=== PATIENT | female | born 1995 | race Caucasian/White ===

== ENCOUNTER 2018-07-29 04:10 | Emergency (ER) | payer OTHER ==
[~2018-07-29] VITALS: Ht 152.4 cm; Wt 89.8 kg
--- NOTE | 2018-07-29 05:34 | Diagnostic Imaging Report ---
EXAM: CHEST 2 VIEWS, PA and lateral INDICATION: Left-sided chest pain COMPARISON: None FINDINGS: LINES/TUBES: None LUNGS: No consolidations or edema. PLEURA: No effusions or pneumothorax. HEART AND MEDIASTINUM: Normal size and contour. BONES AND SOFT TISSUES: No acute findings. IMPRESSION: No acute thoracic abnormality. Signed by: Dr. Harriet Sauceda M.D. on 07/29/2018 5:31 AM
== END 2018-07-29 06:49 | disposition home or self-care (01) ==
LOC: ER 04:10
DX: R00.2 Palpitations (principal)
CPT/HCPCS: 71046; 93005; 99282

== ENCOUNTER 2018-08-24 01:58 | Emergency (ER) | payer OTHER ==
[~2018-08-24] VITALS: Ht 152.4 cm; Wt 89.8 kg
--- OUTSIDE RECORDS SUMMARY | 2018-08-24 02:02 | XMS REPORT ---
[facility] Address Unknown Phone Unavailable Care Team Providers Care Power Builder Developer Name Role Phone Chanda HAYDEN Unavailable Unavailable Problems This patient has no known problems. Allergies, Adverse Reactions, Alerts This patient has no known allergies or adverse reactions. Medications This patient has no known medications. Results Test Description Test Time Test Comments Text Results Atomic Results Result Comments CHEST 2 VIEWS 2018-07-29 05:31:00 [place] [id number] Patient Name: KATALINA DEL VALLE MR #: [id number] : 1995 Age/Sex: 22/F Req #: [id number] Adm Physician: Ordered by: LOS HAYDEN MD Report #: [id number] Location: ER Room/Bed: Procedure: [id number] DX/CHEST 2 VIEWS Exam Date: 07/29/18 Exam Time: 0502 REPORT STATUS: Signed EXAM: CHEST 2 VIEWS, PA and lateral INDICATION: Left-sided chest pain COMPARISON: None FINDINGS: LINES/TUBES: None LUNGS: No consolidations or edema. PLEURA: No effusions or pneumothorax. HEART AND MEDIASTINUM: Normal size and contour. BONES AND SOFT TISSUES: No acute findings. IMPRESSION: No acute thoracic abnormality. Signed by: Dr. Gilmar Harris M.D. on 07/29/2018 5:31 AM Dictated By: GILMAR HARRIS MD 0 Transcribed By: HEIDY on 07/29/18530 COPY TO: LOS HAYDEN MD
[2018-08-24 02:20] VITALS: BP 123/88
[2018-08-24 02:52] LABS: BASOPHILS # (AUTO) 0.1 (0.0-0.1); BASOPHILS % 0.4 % (0.0-1.0); EOSINOPHILS # (AUTO) 0.4 (0.0-0.4); EOSINOPHILS % 3.4 % (0.0-6.0); HEMATOCRIT 34.2 % (34.2-44.1); HEMOGLOBIN 12.1 g/dL (12.0-16.0); LYMPHOCYTES # (AUTO) 3.2 (1.0-3.2); LYMPHOCYTES % 26.1 % (18.0-39.1); MEAN CORPUSCULAR HEMOGLOBIN 28.3 pg (28-32); MEAN CORPUSCULAR HGB CONC 35.4 g/dL (31-35); MEAN CORPUSCULAR VOLUME 80.1 fL (81-99); MONOCYTES # (AUTO) 1.2 (0.2-0.8); MONOCYTES % 9.5 % (4.4-11.3); NEUTROPHILS # (AUTO) 7.5 (2.1-6.9); NEUTROPHILS % 60.4 % (38.7-80.0); PLATELET COUNT 377 x10e3/uL (140-360); RED BLOOD COUNT 4.27 x10e6/uL (3.6-5.1); RED CELL DISTRIBUTION WIDTH 13.8 % (11.7-14.4)
[2018-08-24 03:10] LABS: ALANINE AMINOTRANSFERASE 32 IU/L (0-55); ALBUMIN 3.9 g/dL (3.5-5.0); ALBUMIN/GLOBULIN RATIO 1.2 (0.8-2.0); ALKALINE PHOSPHATASE 47 IU/L (40-150); ANION GAP 15.5 mmol/L (8-16); BLOOD UREA NITROGEN 13 mg/dL (7-26); BUN/CREATININE RATIO 16 (6-25); CALCIUM 9.4 mg/dL (8.4-10.2); CARBON DIOXIDE 19 mmol/L (22-29); CHLORIDE 108 mmol/L (98-107); CREATININE, SERUM 0.79 mg/dL (0.57-1.11); EST GLOMERULAR FILTRATION RATE > 60 ML/MIN (60-); GLUCOSE 92 mg/dL (74-118); POTASSIUM 3.5 mmol/L (3.5-5.1); SODIUM 139 mmol/L (136-145)
--- NOTE | 2018-08-24 03:59 | Diagnostic Imaging Report ---
EXAMINATION: Head CT without contrast. HISTORY:Headache and lightheaded. COMPARISON:None. TECHNIQUE: Multidetector axial images were obtained from the foramen magnum to the vertex without contrast. The images were reconstructed using brain and bone algorithms. Thin section brain images were reformatted into coronal and sagittal planes. Dose modulation, iterative reconstruction, and/or weight based adjustment of the mA/kV was utilized to reduce the radiation dose to as low as reasonably achievable. Intravenous contrast: None IMAGE QUALITY: Acceptable. FINDINGS: Skull/scalp: No lytic or blastic. lesions. No surgical changes. Parenchyma: No abnormal density. No acute hemorrhage, mass or acute major vascular territorial infarct. Arteries: No density suggestive of thrombosis. Dural sinuses: No abnormal density suggestive of thrombosis. Ventricles: No hydrocephalus or displacement. Extra-axial spaces: No abnormal density. Brain volume: Normal for age. Craniocervical junction: No mass, Chiari malformation, or basilar invagination. Sella: No mass. Paranasal/mastoid sinuses: Imaged portions unremarkable. IMPRESSION: No intracranial abnormality. Signed by: Dr. Lindsey Rader M.D. on 08/24/2018 3:56 AM
--- NOTE | 2018-08-24 04:08 | Diagnostic Imaging Report ---
History: Difficulty swallowing, feeling of something stuck in the throat. Comparison studies: None Technique: Axial, coronal and sagittal images from the skull base to the thoracic inlet. Coronal and sagittal images reconstructed from the axial data. Dose modulation, iterative reconstruction, and/or weight based adjustment of the mA/kV was utilized to reduce the radiation dose to as low as reasonably achievable. Intravenous contrast: 100 cc of Isovue 370.. Findings: Soft tissues: Minimal soft tissue prominence at the level of the palatine tonsils and left paramedian lingual tonsil may represent pharyngitis in appropriate clinical setting. No discrete peripheral rim-enhancing fluid collection. Airway is patent. No radiopaque foreign body. Masses: None. Lymph nodes: No radiographically significant adenopathy. Vessels: Arteries and veins are patent. Glands (thyroid, parotid and submandibular): Normal in size and symmetric. No masses. Orbits: No abnormalities. Paranasal sinuses: Clear. Temporal bones: No abnormalities. Skull base and facial bones: Intact. Cervical spine: No significant abnormality. IMPRESSION: 1. Minimal palatine and left lingual tonsillar soft tissue prominence may represent pharyngitis in appropriate clinical setting. No discrete abscess. 2. No worrisome lateral cervical lymphadenopathy. Signed by: Dr. Lindsey Rader M.D. on 08/24/2018 4:05 AM
[2018-08-24] MEDS ORDERED: IOPAMIDOL 370 MG/ML 200 ML INFUS..BTL INJ ONE (04:51)
[2018-08-24] MEDS ORDERED: SODIUM CHLORIDE 0.9% 50ML 50 ML ONE (04:51)
[2018-08-24] MEDS ORDERED: AMOXICILLIN250 MG PO (05:33)
== END 2018-08-24 06:00 | disposition home or self-care (01) ==
LOC: ER 01:58
DX: J02.9 Acute pharyngitis, unspecified (principal); B35.8 Other dermatophytoses; R51 Headache
CPT/HCPCS: 36415; 70450; 70491; 80053; 85025; 99283; Q9967

== ENCOUNTER 2018-09-10 23:16 | Emergency (ER) | payer OTHER ==
[~2018-09-10] VITALS: Ht 152.4 cm; Wt 89.8 kg
[~2018-09-10 23:16] MED LIST: AMOXICILLIN250 MG PO
== END 2018-09-11 00:13 | disposition home or self-care (01) ==
LOC: ER 23:16
DX: M54.2 Cervicalgia (principal); S16.1XXA Strain of muscle, fascia and tendon at neck level, initial encounter; S00.83XA Contusion of other part of head, initial encounter; V43.52XA Car driver injured in collision with other type car in traffic accident, initial encounter; Y92.488 Other paved roadways as the place of occurrence of the external cause; F41.9 Anxiety disorder, unspecified
CPT/HCPCS: 99282

== ENCOUNTER 2020-01-22 03:21 | Emergency (ER) | payer OTHER ==
[~2020-01-22] VITALS: Ht 152.4 cm; Wt 80.3 kg
--- NOTE | 2020-01-22 03:44 | Emergency Department Note ---
History of Present Illnes History of Present Illness Chief Complaint: Extremity Trauma/Pain History of Present Illness This is a 24 year old female PRESENTS TO THE ER C/O LT CALF PAIN ONSET YESTERDAY AM; PT STATES SHE DEVELOPS PAIN WHEN AMBULATING OR BEARING WEIGHT; PT STATES SHE FEELS TIGHTNESS IN HER CALF; PT DENIES ANY LONG TRAVELS BUT HAS BEEN LAYING IN BED FOR EXTENDED PERIOD OF TIME OVER THE PAST FEW DAYS D/T DX EAR INFECTION. Historian: Patient Arrival Mode: Car Onset (how long ago): day(s) (1) Location: LEFT CALF Quality: PAIN Radiation: Reports non-radiation Severity: mild Onset quality: sudden Duration (how long): day(s) (1) Timing of current episode: constant Progression: unchanged Chronicity: new Context: Denies recent illness, Denies recent surgery, Denies recent travel, Denies trauma/injury Relieving factors: immobilization Exacerbating factors: movement Associated symptoms: Reports denies other symptoms Treatments prior to arrival: none Past Medical/Family History Physician Review I have reviewed the patient's past medical and family history. Any updates have been documented here. Past Medical History Recent Fever: No Clinical Suspicion of Infectio: No New/Unexplained Change in Ment: No Past Medical History: Anxiety Other Medical History: HEART MURMUR Past Surgical History: None Social History Smoking Cessation: Never Smoker Alcohol Use: None Any Illegal Drug Use: No Family History Family history of heart diseas: No Other Last Tetanus: UTD Review of Systems Review of Systems Constitutional: Reports no symptoms EENTM: Reports no symptoms Cardiovascular: Reports no symptoms Respiratory: Reports no symptoms Gastrointestinal: Reports no symptoms Genitourinary: Reports no symptoms Musculoskeletal: Reports as per HPI Integumentary: Reports no symptoms Neurological: Reports no symptoms Psychological: Reports no symptoms Endocrine: Reports no symptoms Hematological/Lymphatic: Reports no symptoms Physical Exam Related Data Allergies: Coded Allergies: No Known Allergies (Unverified , 07/29/18) Triage Vital Signs Vital Signs Date Time Temp Pulse Resp B/P (MAP) Pulse Ox O2 Delivery O2 Flow Rate FiO2 01/22/20 03:25 98.3 90 18 140/92 100 Vital signs reviewed: Yes Physical Exam CONSTITUTIONAL Constitutional: Present well-developed, Present well-nourished HENT HENT: Present normocephalic, Present atraumatic, Present oropharynx clear/moist, Present nose normal HENT L/R: Present left ext ear normal, Present right ext ear normal EYES Eyes: Reports PERRL, Reports conjunctivae normal NECK Neck: Present ROM normal PULMONARY Pulmonary: Present effort normal, Present breath sounds normal CARDIOVASCULAR Cardiovascular: Present regular rhythm, Present heart sounds normal, Present capillary refill normal, Present normal rate GASTROINTESTINAL Abdominal: Present soft, Present nontender, Present bowel sounds normal GENITOURINARY Genitourinary: Present exam deferred SKIN Skin: Present warm, Present dry MUSCULOSKELETAL Musculoskeletal: Present ROM normal, Present tenderness (TO LEFT CALF) NEUROLOGICAL Neurological: Present alert, Present oriented x 3, Present no gross motor or sensory deficits PSYCHOLOGICAL Psychological: Present mood/affect normal, Present judgement normal Results Diagnostics Tests Diagnostic test(s) reviewed: Yes Diagnostic comments VENOUS DOPPLER LLE NEGATIVE FOR DVT Assessment & Plan Medical Decision Making MDM PT WITH PAIN IN LEFT CALF VENOUS DOPPLER ORDERED TO EVAL FOR DVT Assessment & Plan Final Impression: (1) Muscle strain of left lower leg Depart Disposition: HOME, SELF-CARE Last Vital Signs Date Time Temp Pulse Resp B/P (MAP) Pulse Ox O2 Delivery O2 Flow Rate FiO2 01/22/20 03:25 98.3 90 18 140/92 100 Home Meds Active Scripts Amoxicillin (AMOXICILLIN) 250 Mg Capsule, 500 MG PO BID for 10 Days, #20 CAP Prov:LOS MEDRANO, 08/24/18 YUE RASHID MD Jan 22, 2020 03:44
== END 2020-01-22 05:06 | disposition home or self-care (01) ==
LOC: ER 03:21
DX: M79.662 Pain in left lower leg (principal); S86.812A Strain of other muscle(s) and tendon(s) at lower leg level, left leg, initial encounter; F41.9 Anxiety disorder, unspecified; R01.1 Cardiac murmur, unspecified
CPT/HCPCS: 93971; 99282